=== PATIENT | male | born 1980 | race Caucasian/White ===

== ENCOUNTER 2023-01-23 14:10 | Outpatient (AMB) | payer MEDICAID, SELFPAY ==
--- NOTE | 2023-01-23 14:16 | MHC.OFFVIS ---
Intake Vital Signs 01/23/23 14:18 Height 5 ft 5 in Weight 238 lb 1.588 oz BMI 39.6 BP 135/82 Blood Pressure Location Lt brachial Position Sitting Pulse 89 Intake Visit Reasons: GI bleed Intake Note: Nicola presents in the office as a new patient for a GI bleed. CC: He states that he is here today because he has bleeding when he has a BM. No irregular bowel movements. He states that he has acid reflux. [employer] Required: No Allergies No Known Allergies Allergy (Verified 01/23/23 14:19) HPI HPI Comments History of Present Illness Details 42 y.o M with no significant PMH who is here for rectal bleeding. Reports intermittent bleeding x 1-2 years associated with defecation. No abd pain, rectal pain, diarrhea. BM are formed and brown and sometimes hard. No fam hx of CRC or IBD in first degree relatives. PFSH Social History Household Members: Spouse Alcohol intake: current Alcohol intake frequency: does not drink Patient Tobacco Use Status: Never used Tobacco Review of Systems Const All systems reviewed & are unremarkable except as noted in HPI and below Physical Exam Vital Signs: Last Vital Signs Pulse 89 01/23/23 14:18 BP 135/82 01/23/23 14:18 BMI result Body Mass Index 39.6 Gen appear: NAD HEENT: nonicteric, no cervical lymphadenopathy Chest: CTA CVS: Regular S1/S2 Abd: soft, nontender, nondistended, bowel sounds + Rectal: Ainsley Morales MA present as lay out former. Large prolapsing int hemorrhoids on inspection, large int hemorrhoids on digital exam. No blood on gloved finger. Ext: no peripheral edema Neuro: A/Ox3, noted to move all extremities spontaneously Psych: interacting appropriately Assessment & Plan Assessment & Plan (1) Bright red rectal bleeding: Code(s): K62.5 - Hemorrhage of anus and rectum (2) Hemorrhoids: Code(s): K64.9 - Unspecified hemorrhoids Plan Presentation consistent with rectal outlet bleeding 2/2 hemorrhoids as noted on exam today. No red flags on assessment today. Plan: - Check labs for anemia - Advised improved hydration and fiber intake - Avoid constipation. Can take miralax - Sitz baths - Topical hydrocortisone [place] x 10-14 days at bedtime - Follow up in 4 weeks to review response. If bleeding resolved, will book him for a screening colo (turns 43 in Dec) otherwise will need it for rectal bleeding evaluation Orders: Orders Complete Blood Count no Diff Today K62.5 - Hemorrhage of anus and rectum Ferritin Today K62.5 - Hemorrhage of anus and rectum IRON PROFILE Today K62.5 - Hemorrhage of anus and rectum Medications: New hydrocortisone 2.5% 1 appl [place] BEDTIME 14 days 30 grams 0RF hemorrhoids Patient Instructions: 1. Increase fiber and hydration 2. Avoid constipation. Can take miralax 1 capful mixed in water every day 3. Sitz baths 4. Hydrocortisone cream to be applied 10-14 days at bedtime 5. Follow up in 4 weeks Coding Level of Care Code New Pt Level 4 (28995) Diagnoses Bright red rectal bleeding K62.5 Hemorrhoids K64.9
[2023-01-23 14:18] VITALS: BP 135/82; PULSE 89; BMI 39.6
== END 2023-01-23 14:39 | disposition home or self-care (01) ==
PROVIDERS: PCP Physician Assistant Medical; Visit Provider Internal Medicine
DX: K62.5 Hemorrhage of anus and rectum (principal); K64.9 Unspecified hemorrhoids
CPT/HCPCS: 99204

== ENCOUNTER 2023-01-23 14:10 | Outpatient (REF) | payer MEDICAID, SELFPAY | END 2023-01-23 14:11 | disposition home or self-care (01) | LOC: HO.LAB 14:10 | PROVIDERS: PCP Physician Assistant Medical; Visit Provider Internal Medicine | DX: K62.5 Hemorrhage of anus and rectum (principal); K64.9 Unspecified hemorrhoids | CPT/HCPCS: 36415; 82728; 83540; 85027 ==

== ENCOUNTER 2023-02-23 12:49 | Outpatient (AMB) | payer MEDICAID, SELFPAY ==
--- NOTE | 2023-02-23 12:56 | A.OFFVIS_ITS ---
Intake Vital Signs 02/23/23 12:57 Height 5 ft 5 in Weight 227 lb 1.218 oz BMI 37.8 BP 120/77 Blood Pressure Location Lt brachial Position Sitting Pulse 86 Intake Visit Reasons: 4 week follow up rectal b;eedding Intake Note: Nicola presents in the office as a 4 week follow up. CC: No changes - he is still having the rectal bleeding. Allergies No Known Allergies Allergy (Verified 02/23/23 12:58) HPI HPI Comments History of Present Illness Details 42 y.o M with no significant PMH who is here for rectal bleeding. Reports intermittent bleeding x 1-2 years associated with defecation. No abd pain, rectal pain, diarrhea. BM are formed and brown and sometimes hard. No fam hx of CRC or IBD in first degree relatives. 02/23/23: Here for follow up. Reports resolution of rectal bleeding with topical hydrocort but the bleeding recurred a few days after completing the hydrocort. Pt had not been following other instructions howeever and remains constipated more often than not. [facility] Social History Household Members: Spouse Alcohol intake: current Alcohol intake frequency: does not drink Patient Tobacco Use Status: Never used Tobacco Review of Systems Const All systems reviewed & are unremarkable except as noted in HPI and below Physical Exam Vital Signs: Last Vital Signs Pulse 86 02/23/23 12:57 BP 120/77 02/23/23 12:57 BMI result Body Mass Index 37.8 Gen appear: NAD HEENT: nonicteric, no cervical lymphadenopathy Chest: CTA CVS: Regular S1/S2 Abd: soft, nontender, nondistended, bowel sounds + Ext: no peripheral edema Neuro: A/Ox3, noted to move all extremities spontaneously Psych: interacting appropriately Assessment & Plan Assessment & Plan (1) Bright red rectal bleeding: Code(s): K62.5 - Hemorrhage of anus and rectum (2) Hemorrhoids: Code(s): K64.9 - Unspecified hemorrhoids Plan Presentation consistent with rectal outlet bleeding 2/2 hemorrhoids as noted on exam previously. He was also reassured about normal counts on labs. No red flags on assessment however pt remains worried about persistent bleeding. Plan: - Instructions reviewed again to take fiber avoid constipation - Nonurgent colo to be set up. Split prep instructions were thoroughly reviewed with the pt. - Follow up after colo as needed Medications: New peg 3350-electrolytes [id number] -5.86 gram (Golytely) as per split prep instructions, until fecal effluent is clear 240 mL PO Q10M 4,000 mL 0RF colonoscopy Patient Instructions: 1. Increase fiber and hydration 2. Avoid constipation. Can take miralax 1 capful mixed in water every day 3. Continue sitz baths 4. We will also schedule for a colonoscopy to evaluate this further. Please follow the instructions to prepare for this procedure handed to you separately. Coding Level of Care Code Est Pt Level 4 (60756) Diagnoses Bright red rectal bleeding K62.5 Hemorrhoids K64.9
[2023-02-23 12:57] VITALS: BP 120/77; PULSE 86; BMI 37.8
== END 2023-02-23 13:20 | disposition home or self-care (01) ==
PROVIDERS: PCP Physician Assistant Medical; Visit Provider Internal Medicine
DX: K62.5 Hemorrhage of anus and rectum (principal); K64.9 Unspecified hemorrhoids
CPT/HCPCS: 99214

== ENCOUNTER → 2023-02-23 12:49 | Outpatient (BNVA) | payer MEDICAID, SELFPAY | PROVIDERS: PCP Physician Assistant Medical; Visit Provider Internal Medicine | DX: K62.5 Hemorrhage of anus and rectum (principal); K64.9 Unspecified hemorrhoids | CPT/HCPCS: 99212 ==